=== PATIENT | male | born 1935 | race African-American/Black ===

== ENCOUNTER 2018-10-04 13:20 | Inpatient (IN) | payer MEDICAID ==
[~2018-10-04] VITALS: Ht 165.1 cm; Wt 84.8 kg
[2018-10-04 13:37] VITALS: BP 136/76
--- NOTE | 2018-10-04 13:44 | NUR ---
PT TO LOBBY
--- NOTE | 2018-10-04 15:37 | NUR ---
Patient taken to bed 3.
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
--- NOTE | 2018-10-04 15:40 | NUR ---
OFFERED PT TO GO TO THE BATHROOM FOR URINE SPECIMEN. PT STATES THAT HE JUST WENT TO THE BATHROOM
[2018-10-04] MEDS ORDERED: MORPHINE SULFATE 2 MG/ML SYR IVP ONE (16:00)
[2018-10-04] MEDS ORDERED: ONDANSETRON 4 MG/2 ML VIAL IVP ONE (16:00)
--- NOTE | 2018-10-04 16:03 | NUR ---
DR CAMARA AT BEDSIDE FOR PT EVAL
--- NOTE | 2018-10-04 16:09 | NUR ---
PT TAKEN TO CT VIA BED BY SKEIN MERCERIZING MACHINE OPERATOR
--- NOTE | 2018-10-04 17:00 | NUR ---
PT ASLEEP. EASILY AROUSABLE BY VOICE. NO SIGNS AND SYMPTOMS OF DISTRESS NOTED.
[2018-10-04 17:12] LABS: BASOPHILS % (AUTO) 0.4 % (0.0-2.0); EOSINOPHILS # (AUTO) 0.1 K/uL (0-0.4); EOSINOPHILS % (AUTO) 2.3 % (0.0-4.0); HEMATOCRIT 40.7 % (36-52); HEMOGLOBIN 13.4 g/dL (12.0-18.0); LYMPHOCYTES # (AUTO) 1.7 K/uL (2.0-11.5); LYMPHOCYTES % (AUTO) 38.1 % (20.5-51.1); MEAN CORPUSCULAR HEMOGLOBIN 30 pg (27-31); MEAN CORPUSCULAR HGB CONC 33 g/dL (33-37); MEAN CORPUSCULAR VOLUME 91.8 fL (80-94); MONOCYTES # (AUTO) 0.4 K/uL (0.8-1.0); MONOCYTES % (AUTO) 9.7 % (1.7-9.3); NEUTROPHILS # (AUTO) 2.3 K/uL (1.8-7.7); NEUTROPHILS % (AUTO) 49.5 % (42.2-75.2); PLATELET COUNT (AUTO) 76 K/uL (140-450); RED BLOOD CELL COUNT(AUTO) 4.43 MIL/uL (4.20-6.10); RED CELL DISTRIBUTION WIDTH 13.1 % (11.6-13.7); WHITE BLOOD COUNT (AUTO) 4.6 K/uL (4.8-10.8)
[2018-10-04 17:34] LABS: APPEARANCE,URINE CLEAR (CLEAR); BILIRUBIN,URINE 1+ (NEGATIVE); BLOOD, URINE NEGATIVE (NEGATIVE); COLOR,URINE YELLOW (YELLOW); LEUKOCYTE ESTERASE ,URINE TRACE (NEGATIVE); NITRITE, URINE NEGATIVE (NEGATIVE); UGLUCOSE NEGATIVE (NEGATIVE)
--- NOTE | 2018-10-04 18:00 | NUR ---
PT AAO X4. FULL CLEAR SPEECH. NO SIGNS AND SYMPTOMS OF DISTRESS NOTED.
[2018-10-04 18:01] LABS: ALBUMIN 3.8 g/dL (3.4-5.0); AMYLASE 152 U/L (25-115); ANION GAP 15.1 (8-16); ASPARTATE AMINOTRANSFERASE 24 U/L (15-37); CARBON DIOXIDE 26.9 mmol/L (21-32); CHLORIDE 103 mmol/L (98-107); CREATININE 1.7 mg/dL (0.7-1.3); GLUCOSE 110 mg/dL (74-106); LIPASE 128 U/L (73-393); SODIUM SERUM 141 mmol/L (136-145); TOTAL BILIRUBIN 0.6 mg/dL (0.0-1.0); UREA NITROGEN, BLOOD 24 mg/dL (7-18)
[2018-10-04 18:04] LABS: RBC,URINE 0 /HPF (0-5)
[2018-10-04 18:05] LABS: WBC,URINE 0-5 /HPF (0-5)
[2018-10-04] MEDS ORDERED: MORPHINE SULFATE 2 MG/ML SYR IVP PRN (18:55)
[2018-10-04] MEDS ORDERED: ACETAMINOPHEN 325 MG TAB PO PRN (18:55)
[2018-10-04] MEDS ORDERED: ONDANSETRON 4 MG/2 ML VIAL IM/IVP PRN (18:55)
[2018-10-04] MEDS ORDERED: HYDROcodone/APAP 5/325 MG 1 TAB TAB PO PRN (18:55)
[2018-10-04] MEDS ORDERED: NITROGLYCERIN 0.4 MG TAB SL PRN ×2 (19:00→20:25)
--- NOTE | 2018-10-04 19:00 | NUR ---
PT ASLEEP. EASILY AWAKEN BY NAME. CALM, ACTING APPROPRIATELY. NO SIGNS AND SYMPTOMS OF DISTRESS NOTED.
[2018-10-04 19:27] LABS: BARBITURATE, URINE NEG. ng/ml (NEG <=200); BENZODIAZEPINE, URINE NEG. ng/mL (NEG <=200); CANNABINOID, URINE NEG. ng/mL (NEG <=50); COCAINE, URINE NEG. ng/mL (NEG <=300); OPIATE, URINE NEG. ng/mL (NEG <=2000); PHENCYCLIDINE SCREEN,URINE NEG. ng/mL (NEG <=25)
[2018-10-04 19:38] LABS: MAGNESIUM 2.1 mg/dL (1.8-2.4); PHOSPHORUS 2.9 mg/dL (2.5-4.9); THYROID STIMULATING HORMONE 1.34 uIU/mL (0.34-3.74)
--- NOTE | 2018-10-04 20:00 | NUR ---
PT AAOX4. ACTING APPROPRIATELY. NO SIGNS AND SYMPTOMS OF DISTRESS NOTED.
[2018-10-04 20:05] VITALS: BP 138/73
--- NOTE | 2018-10-04 20:05 | NUR ---
Patient will be admitted to care of DR ORTIZ. Admited to TELE . Will go to room 119 A. Belongings list completed. Report to SAMIA STROUD.
--- NOTE | 2018-10-04 20:05 | NUR ---
REPORT RECEIVED FROM ED NURSE AT BEDSIDE. PT IN STABLE CONDITION. AAOX4. INTRODUCED SELF TO PT. BOARD UPDATED. PT SPEAKS SERBIAN. NO COMPLAINTS OF PAIN. NO SOB. AFEBRILE. IV SITE R FA 22G RUNNING NS@60ML/HR PATENT AND INTACT. SKIN WARM, DRY, AND INTACT WITH NO OPEN WOUNDS. BED LOCKED IN LOW POSITION. CALL CASTILLO WITHIN REACH. SAFETY PRECAUTION IN PLACE. ALL NEEDS MET AT THIS TIME. Addendum: 10/04/18 at 6517 by Facundo Brock RN PT AMBULATES WITH A 4 PRONG CANE. MRSA COLLECTED.
[2018-10-04] MEDS ORDERED: ASPI-1718 PO (20:06)
[2018-10-04] MEDS ORDERED: BENA20TA PO (20:06)
[2018-10-04] MEDS ORDERED: AMLO10TA4 PO (20:07)
[2018-10-04] MEDS ORDERED: CLOP75TA26 PO (20:07)
[2018-10-04] MEDS ORDERED: TAMS0.4C96 PO (20:08)
[2018-10-04] MEDS ORDERED: ATOR40TA PO (20:08)
[2018-10-04] MEDS: BENAZEPRIL 20 MG TAB PO SCH (20:40)
[2018-10-04] MEDS: NACL 0.9% 1,000 ML IV SCH (20:40)
--- NOTE | 2018-10-04 20:40 | NUR ---
LOTENSIN GIVEN PO. PT TOLERATED WELL.
--- NOTE | 2018-10-04 22:45 | NUR ---
PT SLEEPING COMFORTABLY IN BED. NO S/S OF DISTRESS NOTED. WILL CONTINUE TO MONITOR.
[2018-10-05] VITALS: BP 115/52
--- NOTE | 2018-10-05 01:45 | NUR ---
PT SLEEPING COMFORTABLY IN BED. NO S/S OF DISTRESS NOTED. NO COMPLAINTS OF CHEST PAIN. NO SOB. AFEBRILE. WILL CONTINUE TO MONITOR.
--- NOTE | 2018-10-05 03:15 | NUR ---
PT SLEEPING COMFORTABLY IN BED. NO S/S OF DISTRESS NOTED. NO COMPLAINTS OF PAIN. NO SOB. AFEBRILE. WILL CONTINUE TO MONITOR.
[2018-10-05 04:00] VITALS: BP 122/60
--- NOTE | 2018-10-05 05:00 | NUR ---
PT SLEEPING COMFORTABLY IN BED. NO S/S OF DISTRESS NOTED. NO COMPLAINTS OF CHEST PAIN. WILL CONTINUE TO MONITOR.
[2018-10-05 05:58] LABS: BASOPHILS % (AUTO) 0.5 % (0.0-2.0); EOSINOPHILS # (AUTO) 0.1 K/uL (0-0.4); EOSINOPHILS % (AUTO) 2.8 % (0.0-4.0); HEMOGLOBIN 13.2 g/dL (12.0-18.0); LYMPHOCYTES # (AUTO) 1.5 K/uL (2.0-11.5); LYMPHOCYTES % (AUTO) 39.9 % (20.5-51.1); MEAN CORPUSCULAR HEMOGLOBIN 31 pg (27-31); MEAN CORPUSCULAR HGB CONC 33 g/dL (33-37); MEAN CORPUSCULAR VOLUME 92.5 fL (80-94); MONOCYTES # (AUTO) 0.3 K/uL (0.8-1.0); MONOCYTES % (AUTO) 8.8 % (1.7-9.3); NEUTROPHILS # (AUTO) 1.9 K/uL (1.8-7.7); RED BLOOD CELL COUNT(AUTO) 4.32 MIL/uL (4.20-6.10); WHITE BLOOD COUNT (AUTO) 3.9 K/uL (4.8-10.8)
[2018-10-05 06:22] LABS: PLATELET COUNT (AUTO) 63 K/uL (140-450)
[2018-10-05 06:34] LABS: ANION GAP 9.1 (8-16); CARBON DIOXIDE 32.7 mmol/L (21-32); CHLORIDE 105 mmol/L (98-107); CREATININE 1.5 mg/dL (0.7-1.3); GLUCOSE 99 mg/dL (74-106); POTASSIUM 3.8 mmol/L (3.5-5.1); SODIUM SERUM 143 mmol/L (136-145); UREA NITROGEN, BLOOD 18 mg/dL (7-18)
[2018-10-05 06:36] LABS: CHOL/HDL RATIO 2.6 (1-4.5)
--- NOTE | 2018-10-05 07:10 | NUR ---
REPORT GIVEN TO AM NURSE AT BEDSIDE. PT IN STABLE CONDITION.
--- NOTE | 2018-10-05 07:21 | NUR ---
REPORT RECEIVED FROM SENIOR SPEECH PATHOLOGIST NURSE LUANNE AT BEDSIDE. PT IN STABLE CONDITION. AAOX4. INTRODUCED SELF TO PT. BOARD UPDATED. PT SPEAKS OCCITAN BUT UNDERSTANDS SOME TAMAZIGHT. NO COMPLAINTS OF PAIN. NO SOB. AFEBRILE. IV SITE R FA 22G RUNNING NS@60ML/HR PATENT AND INTACT. SKIN WARM, DRY, AND INTACT WITH NO OPEN WOUNDS. BED LOCKED IN LOW POSITION. CALL CASTILLO WITHIN REACH. SAFETY PRECAUTION IN PLACE. ALL NEEDS MET AT THIS TIME. WILL MONITOR PT CLOSELY.
--- NOTE | 2018-10-05 08:31 | NUR ---
PT RESTING IN BED. MORNING SCHEDULED MEDS ADMINISTERED. PT DENIES PAIN OR SOB AT THIS TIME. WILL CONTINUE TO MONITOR PT CLOSELY. BED IN LOW POSITION, CALL LIGHT WITHIN REACH.
--- NOTE | 2018-10-05 08:45 | NUR ---
PATIENT HAS BEEN SCREENED AND CATEGORIZED MODERATE NUTRITION RISK. PATIENT WILL BE SEEN WITHIN 3-5 DAYS OF ADMISSION. 10/07/18 10/09/[address]
[2018-10-05] MEDS: BENAZEPRIL 20 MG TAB PO SCH (08:57)
[2018-10-05] MEDS ORDERED: amLODIPine 5 MG TAB PO SCH (09:00)
[2018-10-05] MEDS ORDERED: ASPIRIN 81 MG TAB.CHEW PO SCH ×2 (09:00)
[2018-10-05] MEDS ORDERED: TAMSULOSIN 0.4 MG CAP PO SCH (09:00)
[2018-10-05] MEDS ORDERED: ATORVASTATIN 20 MG TAB PO SCH (09:00)
[2018-10-05 10:32] VITALS: BP 119/60
--- NOTE | 2018-10-05 10:47 | NUR ---
PT ASLEEP IN BED. NO SIGNS OF PAIN OR DISTRESS AT THIS TIME. WILL CONTINUE TO ROUND ON PT FREQUENTLY.
[2018-10-05] MEDS: NACL 0.9% 1,000 ML IV SCH (11:31)
--- NOTE | 2018-10-05 12:37 | NUR ---
PT RESTING IN BED. NO COMPLAINTS OF PAIN AT THIS TIME. WILL CONTINUE TO ROUND FREQUENTLY ON PT. BED IN LOW POSITION, CALL LIGHT WITHIN REACH.
--- NOTE | 2018-10-05 14:40 | NUR ---
PT SIGNED HIMSELF OUT AMA. PT LEFT IN STABLE CONDITION WITH HIS DAUGHTER. PT IV REMOVED WITH TIP INTACT. WRIST BAND REMOVED AND PLACED IN SHRED BIN. TELE BOX REMOVED AND GIVEN TO MANUFACTURING CLERK. AMA FORM SIGNED BY PT. ALL PERSONAL BELONGINGS TAKEN WITH PT. AWARE OF PT AMA. DISCUSSED AMA WITH PT AND RISKS, PT VERBALIZED UNDERSTANDING.
== END 2018-10-05 14:40 | disposition left against medical advice (07) | DRG 198 ==
LOC: MED 13:20 → MTU 18:56
PROVIDERS: ADMIT Family Medicine; ATTEND Family Medicine
DX: I24.9 Acute ischemic heart disease, unspecified (principal); N17.0 Acute kidney failure with tubular necrosis; D69.6 Thrombocytopenia, unspecified; M94.0 Chondrocostal junction syndrome [Tietze]; E66.9 Obesity, unspecified; I10 Essential (primary) hypertension; E86.0 Dehydration; N40.0 Benign prostatic hyperplasia without lower urinary tract symptoms; E78.5 Hyperlipidemia, unspecified; Z53.21 Procedure and treatment not carried out due to patient leaving prior to being seen by health care provider; Z68.31 Body mass index [BMI] 31.0-31.9, adult; Z71.3 Dietary counseling and surveillance; Z95.2 Presence of prosthetic heart valve
CPT/HCPCS: 36415; 70450; 71250; 72125; 80048; 80053; 80305; 81001; 82150; 83690; 83735; 84100; 84443; 84484; 85025; 87081; 87086; 93005; 96374; 96375; 99285; J2270; J2405; J7030